=== PATIENT | male | born 1995 | race Caucasian/White ===

== ENCOUNTER 2016-10-31 20:21 | Emergency (ER) | payer OTHER ==
--- NOTE | 2016-10-31 22:02 | ER Document Report ---
ED GI/ - General Mode of Arrival: Ambulatory Information source: Patient TRAVEL OUTSIDE OF THE [place] IN LAST 30 DAYS: No - HPI Patient complains to provider of: Diarrhea Onset: Last week Timing/Duration: Persistent Quality of pain: Cramping Similar symptoms previously: Yes Recently seen / treated by doctor: Yes <DORI GARDINER - Last Filed: 10/31/16 22:42> <ALEXIA GOMEZ - Last Filed: 11/10/16 04:10> - General Chief Complaint: Abdominal Pain Stated Complaint: ABDOMINAL PAIN Notes: Patient is a 21-year-old male that presents to the emergency department today with complaints of consistent diarrhea for one week. Patient states since he has had diarrhea approximately 60 times. Patient was seen at [facility] a few days ago and was given an IV for fluids secondary to dehydration. Patient states he has attempted to stay hydrated with water and Gatorade but he feels he is still dehydrated. Patient states he has generalized weakness and fatigue. Patient states he has had diffuse abdominal cramping along with this diarrhea. Patient denies a history of Crohn's or ulcerative colitis. Patient states he has not been recently admitted to the hospital and has not had any recent antibiotic usage. Patient denies being out of the country or drinking suspicious water recently. Patient denies any sick contacts, fevers, or vomiting. (DORI GARDINER) - Related Data Allergies/Adverse Reactions: No Known Allergies Allergy (Unverified 10/31/16 22:46) Home Medications: Current Home Medications Loperamide HCl [Loperamide] 1 b PO 10/31/16 [History] Ondansetron [Ondansetron Odt] 4 mg SL Q8 10/31/16 [History] Past Medical History - General Information source: Patient - Social History Smoking Status: Never Smoker Cigarette use (# per day): No Frequency of alcohol use: None Drug Abuse: None Lives with: Family Family History: Reviewed & Not Pertinent - Medical History Medical History: Negative Surgical Hx: Negative <DORI GARDINER - Last Filed: 10/31/16 22:42> Review of Systems - Review of Systems Constitutional: See HPI, Weakness. denies: Fever EENT: No symptoms reported Cardiovascular: No symptoms reported Respiratory: No symptoms reported Gastrointestinal: See HPI, Abdominal pain, Diarrhea, Nausea. denies: Vomiting Genitourinary: No symptoms reported Male Genitourinary: No symptoms reported Musculoskeletal: No symptoms reported Skin: No symptoms reported Hematologic/Lymphatic: No symptoms reported Neurological/Psychological: No symptoms reported -: Yes All other systems reviewed and negative <DORI GARDINER - Last Filed: 10/31/16 22:42> Physical Exam <BAUTISTA GARDINERON - Last Filed: 10/31/16 22:42> <ALEXIA GOMEZ - Last Filed: 11/10/16 04:10> - Vital signs Vitals: Temp Pulse Resp BP Pulse Ox 97.1 F 54 L 14 104/63 98 10/31/16 20:43 10/31/16 20:43 10/31/16 20:43 10/31/16 20:43 10/31/16 20:43 - Notes Notes: Physical Exam: General: Alert, appears well. HEENT: Normocephalic. Atraumatic. PERRL. Extraocular movements intact. Oropharynx clear. Neck: Supple. Non-tender. Respiratory: No respiratory distress. Clear and equal breath sounds bilaterally. Cardiovascular: Regular rate and rhythm. Abdominal: Mild diffuse abdominal tenderness with palpation. No distension. Normal Bowel Sounds. Back: Non-tender. No deformity or step off. Extremities: Moves all four extremities. Upper extremities: Normal inspection. Normal ROM. Lower extremities: Normal inspection. No edema. Normal ROM. Neurological: Normal cognition. AAOx4. Normal speech. Psychological: Normal affect. Normal Mood. Skin: Warm. Dry. Normal color. (DORI GARDINER) Course <DORI GARDINER - Last Filed: 10/31/16 22:42> - Laboratory Result Diagrams: 10/31/16 22:50 10/31/16 22:50 <ALEXIA GOMEZ - Last Filed: 11/10/16 04:10> - Re-evaluation Re-evalutation: 11/10/16 04:09 well appearing nontoxic no acute distress. nobloody diarrhea times one week. mild abdominal cramping without fever or leukocytosis. hydrated no electrolyte abnormality and tolerating po fluids (ALEXIA GOMEZ) - Vital Signs Vital signs: Temp Pulse Resp BP Pulse Ox 97.9 F 51 L 18 115/62 95 11/01/16 01:11 11/01/16 01:11 11/01/16 01:11 11/01/16 01:11 11/01/16 01:11 - Laboratory Laboratory results interpreted by me: 10/31/16 10/31/16 22:50 22:50 Monocytes % 17.0 H Potassium 3.4 L Discharge <DORI GARDINER - Last Filed: 10/31/16 22:42> <ALEXIA GOMEZ - Last Filed: 11/10/16 04:10> - Discharge Clinical Impression: diarrhea, abdominal cramping Condition: Stable Disposition: HOME, SELF-CARE Additional Instructions: Diarrhea Diarrhea means frequent, watery stools. There are many causes. Any problem that keeps the intestinal tract from absorbing water from the stool can lead to diarrhea. A sudden new diarrhea problem is usually caused by a virus, food sensitivity, toxic bacteria, or drugs. In this case, we expect the problem to go away soon. Testing is done only if you seem seriously ill from the diarrhea. If you have chronic diarrhea, or diarrhea that keeps coming back, we need to find out why. Chronic diarrhea can be due to inflammation of the bowels such as Crohn's disease or ulcerative colitis, food sensitivity such as intolerance to lactose or wheat protein, irritable bowel syndrome, and other problems. If your diarrhea is a significant problem but it's not clear why you have it, we' ll refer you to a specialist for further testing. During an episode of diarrhea, drink small amounts (two to six ounces) of clear liquids (soft drinks, sport drinks, herb teas, broth, etc). Take fluids frequently to prevent dehydration. It's usually not a problem to take mild anti- diarrhea medication such as Kaopectate or Pepto-Bismol. As the diarrhea eases, advance to small amounts of bland food (mashed potato, toast) for 24 hours. Call the physician if blood appears in your vomit or stool, if vomiting lasts longer than 24 hours, if the abdominal pain worsens or becomes localized to one area, if you develop high fever, or if you become lightheaded and weak. Abdominal Pain There are many causes of abdominal pain. Pain can mean a serious problem requiring surgery (such as appendicitis). It can also be an innocent problem that goes away on its own (such as a viral infection). Often, time must pass to determine the cause of pain. The physician does not feel that hospitalization is necessary, at present. Things may change within the next 24 hours. Call the doctor or come back for re- examination if any problems occur, such as: (1) Pain that becomes more severe, steady, or becomes concentrated in one specific area. Also, pain that is more severe with movement or coughing. (2) Vomiting that persists or becomes more frequent. (3) Blood in the vomitus, urine, or bowel movements. Blood in the stool may have a tarry or black appearance. (4) Shaking chills or fever greater than 100 degrees F. (5) The abdomen becomes more distended or swollen. (6) Bowel movements cease. (7) Failure to improve as expected. We have obtained a culture of your diarrhea episode and will contact if there is any abnormalities. Follow up with your primary care physician in 2-3 days drink plenty of fluids including Gatorade and Powerade return for increasing worsening or new symptoms Scribe Attestation: 11/01/16 00:44 I personally performed the services described in the documentation reviewed the documentation recorded by my scribe in my presence and it accurately and completely records my words and actions (ALEXIA GOMEZ) Scribe Documentation - Scribe Written by Steven:: Steven Mcnari, [id number] 10/31/2016 acting as scribe for :: Eric <DORI GARDINER - Last Filed: 10/31/16 22:42>
[2016-10-31] MEDS ORDERED: NORMAL SALINE 1000 ML 1,000 ML IV ONE (22:07)
[2016-10-31 22:43] LABS: APPEARANCE,URINE CLEAR; BILIRUBIN,URINE NEGATIVE (NEGATIVE); GLUCOSE, URINE NEGATIVE (NEGATIVE); KETONES,URINE NEGATIVE (NEGATIVE); LEUKOCYTE ESTERASE,URINE NEGATIVE (NEGATIVE); NITRITE,URINE NEGATIVE (NEGATIVE); PROTEIN,URINE NEGATIVE (NEGATIVE); UROBILINOGEN,URINE NEGATIVE mg/dL (<2.0)
[2016-10-31] MEDS ORDERED: METOCLOPRAMIDE HCL INJ/PF 10 MG/2 ML SDV IV ONE (22:50)
[2016-10-31] MEDS ORDERED: DIPHENHYDRAMINE HCL 50 MG/ML VIAL IV ONE (22:50)
[2016-10-31] MEDS ORDERED: MORPHINE SULFATE 10 MG/ML INJ IV ONE (22:50)
[2016-10-31 23:07] LABS: ABSOLUTE EOSINOPHILS # (AUTO) 0.1 10^3/uL (0.0-0.6); ABSOLUTE LYMPHOCYTES (AUTO) 2.5 10^3/uL (0.5-4.7); ABSOLUTE MONOCYTES (AUTO) 1.4 10^3/uL (0.1-1.4); BASOPHILS % (AUTO) 0.5 % (0-2); EOSINOPHILS % (AUTO) 1.7 % (0-6); HEMATOCRIT 39.4 % (37.9-51.0); HEMOGLOBIN 13.8 g/dL (13.5-17.0); LYMPHOCYTES % (AUTO) 30.8 % (13-45); MEAN CORPUSCULAR HEMOGLOBIN 28.7 pg (27.0-33.4); MEAN CORPUSCULAR VOLUME 82 fl (80-97); RED BLOOD COUNT 4.81 10^6/uL (4.35-5.55); RED CELL DISTRIBUTION WIDTH 12.5 % (11.5-14.0); WHITE BLOOD COUNT 8.1 10^3/uL (4.0-10.5)
[2016-10-31 23:14] LABS: ANION GAP 11 (5-19); BLOOD UREA NITROGEN 11 mg/dL (7-20); CALCIUM 8.4 mg/dL (8.4-10.2); CARBON DIOXIDE 24 mmol/L (22-30); CHLORIDE 105 mmol/L (98-107); CREATININE RESULT 0.99 mg/dL (0.52-1.25); GLUCOSE 79 mg/dL (75-110); POTASSIUM 3.4 mmol/L (3.6-5.0); SODIUM 139.9 mmol/L (137-145)
[2016-11-01 01:42] VITALS: BP 115/62
== END 2016-11-01 02:12 | disposition home or self-care (01) ==
LOC: ER 20:21
DX: R10.84 Generalized abdominal pain (principal); R19.7 Diarrhea, unspecified; R53.1 Weakness; R53.83 Other fatigue; R11.0 Nausea
CPT/HCPCS: 36415; 80048; 81001; 85025; 99284